=== PATIENT | female | born 1955 | race Caucasian/White ===

== ENCOUNTER 2017-05-12 07:17 | Outpatient (CLI) | payer MEDICARE, MEDICAID ==
[~2017-05-12] VITALS: Ht 175.3 cm; Wt 66.2 kg
[2017-05-12 08:37] VITALS: BP 95/58; Ht 175.3 cm; Wt 66.2 kg
[2017-05-12 08:45] LABS: BASOPHILS 0.4 % (0-2); EOSINOPHILS 1.6 % (0-7); HEMATOCRIT 37.4 % (36.0-48.0); IMMATURE GRANULOCYTES 0.2 % (0-5); LYMPHOCYTES 22.6 % (15-50); MCH 30.2 pg (26.0-34.0); MCHC 32.1 g/dL (31.0-37.0); MCV 94.2 fL (80.0-100.0); MEAN PLATELET VOLUME 9.1 fL (7.4-10.4); MONOCYTES 8.5 % (2-11); NEUTROPHILS 66.7 % (40-80); PLATELET COUNT 311 10x3/uL (130-400); RBC 3.97 10x6/uL (4.00-5.40); RDW 13.4 % (11.5-14.5); WBC 8.4 10x3/uL (4.8-10.8)
[2017-05-12 09:16] LABS: CALC OSMOLALITY 280 mosm/kg (275-300); CALCIUM 8.9 mg/dL (8.5-10.1); CHLORIDE - SERUM 105 mmol/L (98-107); CREATININE - SERUM 0.7 mg/dL (0.6-1.3); GLUCOSE 98 mg/dL (74-106); POTASSIUM - SERUM 4.2 mmol/L (3.5-5.1); SODIUM 140 mmol/L (136-145); UREA NITROGEN 17 mg/dL (7-18); eGFR NON AFRICAN AMERICAN 90 mL/min (90-120)
[2017-05-12 09:37] LABS: APTT 27.6 SECONDS (22.8-39.4); INR 0.93 (0.85-1.17); PROTIME 12.3 SECONDS (11.6-15.0)
--- NOTE | 2017-05-12 11:22 | NUR ---
SEE POST POCEDURE VITAL SIGN CHECKLIST
--- NOTE | 2017-05-12 13:53 | NUR ---
NOTIFIED FROM CJ HENRIQUEZ NURSE THAT PATIENT WAS CLEAR TO HAVE A TRAY AND BE DC HOME.
--- NOTE | 2017-05-12 15:19 | NUR ---
1415 REGULAR TRAY PROVIDED. VSS 1420 DC PT PER DORA WALLACE RN 1440 PIV REMOVED W/CATHETER TIP INTACT BRENDA WELL DC TEACHING COMPLETE 1445 PT DC HOME VIA WHEELCHAIR W/FRIEND DRIVING
== END 2017-05-12 14:45 | disposition home or self-care (01) ==
LOC: D.OPS 07:17 → D.CT 10:00 → D.OPS 14:45 → D.CT 05-17 11:00
PROVIDERS: Specialist
DX: C78.02 Secondary malignant neoplasm of left lung (principal); C51.9 Malignant neoplasm of vulva, unspecified

== ENCOUNTER 2017-07-08 21:00 | Observation (INO) | payer MEDICARE, MEDICAID ==
[2017-07-08 22:46] LABS: BASOPHILS 0.2 % (0-2); EOSINOPHILS 0.2 % (0-7); HEMATOCRIT 32.8 % (36.0-48.0); HEMOGLOBIN 10.6 g/dL (12-16); LYMPHOCYTES 13.8 % (15-50); MCH 30.2 pg (26.0-34.0); MCHC 32.3 g/dL (31.0-37.0); MCV 93.4 fL (80.0-100.0); MEAN PLATELET VOLUME 8.1 fL (7.4-10.4); MONOCYTES 15.7 % (2-11); NEUTROPHILS 69.1 % (40-80); RBC 3.51 10x6/uL (4.00-5.40); RDW 14.7 % (11.5-14.5); WBC 12.1 10x3/uL (4.8-10.8)
[2017-07-08 22:48] LABS: PLATELET COUNT 527 10x3/uL (130-400)
[2017-07-08 23:01] LABS: ANION GAP 11.8 mmol/L (8-16); CARBON DIOXIDE 28.9 mmol/L (21.0-32.0); CREATININE - SERUM 0.9 mg/dL (0.6-1.3); POTASSIUM - SERUM 4.7 mmol/L (3.5-5.1)
[2017-07-09] MEDS ORDERED: PHENERGAN25 M1 PO (01:24)
[2017-07-09] MEDS ORDERED: ZOFRAN4 MG PO (01:25)
[2017-07-09] MEDS ORDERED: ULTRAM50 MG PO (01:25)
--- NOTE | 2017-07-09 01:25 | NUR ---
PT ARRIVED ON UNIT VIA STRETCHER ESCORTED BY ER STAFF. POSITIONED IN BED FOR COMFORT. ORIENTATED TO ROOM AND CALL LIGHT SYSTEM. IV FLUIDS STARTED PER ORDER TO LEFT INFUSAPORT. SIDE RAILS UP X2 FOR SAFETY.
--- NOTE | 2017-07-09 01:45 | NUR ---
PERFORMED SS ENEMAS INSTILLING 1,000 ML OVER 6 STAGES, UNTIL PT STATED SHE NEEDS A BREAK. RETURN OF SOME STOOL...APPROX 200ML WITH RETURN OF ALL INSTILLED SOAPY WATER. PT WANTS A BREAK FOR TONIGHT TO REST. ALL LINENS AND GOWN CHANGED.
[2017-07-09 02:27] VITALS: BP 111/60; BMI 20.7
[2017-07-09 04:00] VITALS: BP 101/54
[2017-07-09 06:10] LABS: BASOPHILS 0.2 % (0-2); EOSINOPHILS 0.3 % (0-7); HEMATOCRIT 29.5 % (36.0-48.0); HEMOGLOBIN 9.4 g/dL (12-16); LYMPHOCYTES 17.3 % (15-50); MCH 29.8 pg (26.0-34.0); MCHC 31.9 g/dL (31.0-37.0); MCV 93.7 fL (80.0-100.0); MEAN PLATELET VOLUME 8.4 fL (7.4-10.4); NEUTROPHILS 65.2 % (40-80); PLATELET COUNT 496 10x3/uL (130-400); RBC 3.15 10x6/uL (4.00-5.40); RDW 14.8 % (11.5-14.5); WBC 10.6 10x3/uL (4.8-10.8)
[2017-07-09 06:17] LABS: CALC OSMOLALITY 279 mosm/kg (275-300); CALCIUM 7.9 mg/dL (8.5-10.1); CARBON DIOXIDE 25.2 mmol/L (21.0-32.0); CHLORIDE - SERUM 105 mmol/L (98-107); CREATININE - SERUM 0.7 mg/dL (0.6-1.3); GLUCOSE 104 mg/dL (74-106); POTASSIUM - SERUM 4.4 mmol/L (3.5-5.1); SODIUM 140 mmol/L (136-145); UREA NITROGEN 15 mg/dL (7-18); eGFR NON AFRICAN AMERICAN 90 mL/min (90-120)
--- NOTE | 2017-07-09 08:00 | NUR ---
ASSESSMENT PER FLOW SHEET.PT WITHOUT DISTRESS.CALL LIGHT IN REACH
[2017-07-09 09:20] VITALS: BP 106/58
[2017-07-09 12:31] VITALS: BP 124/74
--- NOTE | 2017-07-09 14:42 | NUR ---
ZOFRAN ORDERED. PT IS NOT TOLERATING CONTRAST FOR CT.
[2017-07-09 16:05] VITALS: BP 117/73
--- NOTE | 2017-07-09 17:00 | NUR ---
CALL TO CT TO LET THEM BE AWARE PT IS NOT TOLERATING CONTRAST
--- NOTE | 2017-07-09 17:02 | NUR ---
STILL UNABLE TO TOLERATE CONTRAST FOR CT WITHOUT NAUSEA.
--- NOTE | 2017-07-09 18:58 | NUR ---
REMAINS WITHOUT CANGE,STILL COMPLAINNG OF NAUSEA AND PAIN. CT RESULTS NOT AVAILABLE AT THIS TIME. CONT PLAN OF CARE
--- NOTE | 2017-07-09 21:25 | NUR ---
REC'D LYING IN BED. ALERT AND ORIENTED X4. REPORTED 10/10 IN ABDOMEN. HAS N/V, ADMIND ZOFRAN. WILL REASSESS TO SEE IS NASEUA HAS GONE DOWN. INSTRUCTED TO CALL IF NEEDED ANYTHING. VERBALIZED UNDERSTANDING. WILL CONT TO MONITOR. BED LOW, LOCKED, CALL LIGHT IN REACH.
[2017-07-09 21:27] VITALS: BP 105/64
[2017-07-10 04:00] VITALS: BP 118/73
--- NOTE | 2017-07-10 04:39 | NUR ---
RESTING QUIETLY, EYES CLOSED. RESP EVEN, UNLABORED. NO DISTRESS NOTED. CONTINUE SHIP MATE'S PLAN OF CARE.
[2017-07-10 04:51] LABS: BASOPHILS 0.2 % (0-2); EOSINOPHILS 0.2 % (0-7); HEMOGLOBIN 9.2 g/dL (12-16); IMMATURE GRANULOCYTES 1.3 % (0-5); LYMPHOCYTES 12.4 % (15-50); MCH 29.8 pg (26.0-34.0); MCHC 31.7 g/dL (31.0-37.0); MCV 93.9 fL (80.0-100.0); MEAN PLATELET VOLUME 8.6 fL (7.4-10.4); MONOCYTES 9.4 % (2-11); NEUTROPHILS 76.5 % (40-80); PLATELET COUNT 416 10x3/uL (130-400); RBC 3.09 10x6/uL (4.00-5.40); RDW 14.6 % (11.5-14.5); WBC 11.4 10x3/uL (4.8-10.8)
[2017-07-10 05:12] LABS: ALKALINE PHOSPHATASE 133 U/L (46-116); ALT (SGPT) 24 U/L (10-68); AMYLASE - SERUM 27 U/L (25-115); BILIRUBIN - TOTAL 0.26 mg/dL (0.2-1.3); CALCIUM 7.1 mg/dL (8.5-10.1); CARBON DIOXIDE 19.6 mmol/L (21.0-32.0); CHLORIDE - SERUM 107 mmol/L (98-107); CREATININE - SERUM 0.6 mg/dL (0.6-1.3); GLUCOSE 93 mg/dL (74-106); LIPASE 62 U/L (73-393); PROTEIN - SERUM 5.6 g/dL (6.4-8.2); SODIUM 141 mmol/L (136-145); eGFR NON AFRICAN AMERICAN > 90 mL/min (90-120)
[2017-07-10 05:14] LABS: CALC OSMOLALITY 279 mosm/kg (275-300); UREA NITROGEN 11 mg/dL (7-18)
[2017-07-10 05:21] LABS: POTASSIUM - SERUM 2.9 mmol/L (3.5-5.1)
--- NOTE | 2017-07-10 05:33 | NUR ---
POTASSIUM CAME BACK AT 2.9CL STARTED ON ELECTROLYTE PROTOCOL PER [facility]. WILL REPLACE POTASSIUM.
--- NOTE | 2017-07-10 07:40 | NUR ---
PT AOX4 RESP EVEN AND NONLABORED PT DENIES NEEDS AT THIS TIME IV TO LEFT SUBCLAVIAN PORT PATENT AND INTACT AT THIS TIME SRX2 BED AT LOWEST SETTING CALL LIGHT WITHIN REACH WILL CONTINUE TO MONITOR
[2017-07-10 08:35] VITALS: BP 127/78
[2017-07-10 12:29] VITALS: BP 108/61
[2017-07-10 16:16] VITALS: BP 112/82
[2017-07-10 20:00] VITALS: BP 148/96
--- NOTE | 2017-07-10 20:30 | NUR ---
PATIENT STATED SHE CANNOT LAY ON HER SIDE YET FOR THE SUPPOSITORY. SHE SAID SHE IS STILL NAUSEOUS. TOLD HER TO CALL WHEN SHE IS READY.
--- NOTE | 2017-07-10 21:45 | NUR ---
PATIENT REFUSED SUPPOSITORY FOR DULCOLAX AT THIS TIME DUE TO ABDOMINAL PAIN AND REFUSED CHRONULAC DUE TO ABDOMINAL PAIN AND NAUSEA
--- NOTE | 2017-07-10 21:58 | NUR ---
PATIENT IS RESTING QUIETLY WITH EYES CLOSED.
--- NOTE | 2017-07-11 00:15 | NUR ---
PATIENT HAD A MEDIUM SIZED HARD STOOL BM IN THE BEDSIDE COMMODE. ASSISTED HER BACK TO BED. SHE REQUESTED A BED BATH. CALL LIGHT IN REACH. BED RIALS UP X'S 2. BED IN LOWEST POSITION.
--- NOTE | 2017-07-11 00:32 | NUR ---
EDUCATED PATIENT ON SCDS. SHE AGREED TO WEAR SCDS. COMPUTER SYSTEMS SOFTWARE ARCHITECT IS GIVING PATIENT A BED BATH. NAA SAID SHE WILL PUT THE SCDS ON HER WHEN THE BEDBATH IS COMPLETE.
--- NOTE | 2017-07-11 01:47 | NUR ---
PATIENT REQUESTED PAIN MEDICATION AND PHENERGAN. SHE STATED "I AM THROWING UP AGAIN. AND MY PAIN IS EXCRUTIATING, I THINK I NEED THAT PAIN MEDICATION NOW." PATIENT REFUSED TO GET THE SECOND DOSE OF DULCOLAX, SHE STATED "I KNOW I NEED IT AND I HAVE MORE THAT NEEDS TO COME OUT, BUT FOR TONIGHT I JUST WANT TO HOLD OFF ON IT. I CANNOT TAKE ANYMORE TONIGHT, I JUST NEED MY REST. I WILL DO IT TOMORROW BUT NOT TONIGHT."
--- NOTE | 2017-07-11 02:10 | NUR ---
PATIENT STATED "I AM FEELING SO MUCH BETTER NOW."
--- NOTE | 2017-07-11 02:32 | NUR ---
PATIENT IS RESTING QUIETLY WITH EYES CLOSED. NO SIGNS OF DISTRESS NOTED. AROUSES EASILY.
[2017-07-11 05:35] LABS: BASOPHILS 0.2 % (0-2); EOSINOPHILS 0.3 % (0-7); HEMATOCRIT 28.2 % (36.0-48.0); HEMOGLOBIN 9.1 g/dL (12-16); IMMATURE GRANULOCYTES 1.6 % (0-5); LYMPHOCYTES 11.1 % (15-50); MCH 29.9 pg (26.0-34.0); MCHC 32.3 g/dL (31.0-37.0); MCV 92.8 fL (80.0-100.0); MEAN PLATELET VOLUME 8.3 fL (7.4-10.4); MONOCYTES 10.5 % (2-11); NEUTROPHILS 76.3 % (40-80); PLATELET COUNT 403 10x3/uL (130-400); RBC 3.04 10x6/uL (4.00-5.40); RDW 14.7 % (11.5-14.5); WBC 13.1 10x3/uL (4.8-10.8)
[2017-07-11 05:39] VITALS: BP 120/77
[2017-07-11 05:52] LABS: ALKALINE PHOSPHATASE 129 U/L (46-116); ALT (SGPT) 24 U/L (10-68); CALC OSMOLALITY 281 mosm/kg (275-300); CALCIUM 7.9 mg/dL (8.5-10.1); CARBON DIOXIDE 21.3 mmol/L (21.0-32.0); CHLORIDE - SERUM 111 mmol/L (98-107); CREATININE - SERUM 0.5 mg/dL (0.6-1.3); GLUCOSE 104 mg/dL (74-106); POTASSIUM - SERUM 3.5 mmol/L (3.5-5.1); PROTEIN - SERUM 5.6 g/dL (6.4-8.2); SODIUM 142 mmol/L (136-145); UREA NITROGEN 9 mg/dL (7-18); eGFR NON AFRICAN AMERICAN > 90 mL/min (90-120)
--- NOTE | 2017-07-11 07:45 | NUR ---
PT AOX4 RESP EVEN AND NONLABORED PT DENIES NEEDS AT THIS TIME IV TO LEFT FOREARM PATENT AND INTACT AT THIS TIME SRX2 BED AT LOWEST SETTING CALL LIGHT WITHIN REACH WILL CONTINUE TO MONITOR
--- NOTE | 2017-07-11 07:53 | NUR ---
Patient Name: BARBARA AGUILAR Admission Status: ER Accout number: [id number] Admission Date: 07-08-2017 : 1955 Admission Diagnosis: Attending: EBER, Current LOS: 3 Anticipated DC Date: 07-11-2017 Planned Disposition: Home Primary Insurance: [employer] ADV Discharge Planning Comments: CM MET WITH PATIENT REGARDING D/C NEEDS AND PLANS. PATIENT STATED SHE LIVES ALONE AND HER FRIEND (AMARILYS) POSSIBLY WILL DRIVE HER HOME AT DISCHARGE. PATIENT STATED SHE HAS NO STEPS OR STAIRS AT HER HOME. PATIENT STATED SHE IS INDEPENDENT WITH HER CARE AND HAS A WALKER, WHEELCHAIRK, SHOWER CHAIR, AND CANE AT HOME. PATIENTS PCP IS DR. AMOL HOUSTON AND USES [facility]. PATIENT STATED [facility] IN [place] IS SETTING UP HH FOR HER. CM WILL CONTINUE TO FOLLOW PATIENT WITH D/C NEEDS AND PLANS. PCP DR. AMOL HOUSTON [facility]- [phone] AMARILYS TERRY (FRIEND) [phone] Fuel Cell Battery Technician: Lauren Bowens Is the patient Alert and Oriented? Yes 0 * How many steps to enter\exit or inside your home? 0 0 * PCP DR. AMOL HOUSTON 0 * Pharmacy [facility] 0 * Preadmission Environment Home Alone 0 * ADLs Independent 0 * Equipment Cane Shower Chair Walker Wheelchair 0 * List name and contact numbers for known caregivers / representatives who currently or will assist patient after discharge: AMARILYS TERRY (FRIEND) [phone] 0 * Community resources currently utilized None 0 * Please name any agencies selected above. HH HAS NOT STARTED YET PER PATIENT 0 * Additional services required to return to the preadmission environment? Yes 0 * Can the patient safely return to the preadmission environment? Yes 0 * Has this patient been hospitalized within the prior 30 days at any hospital? No 0 Grand Total: 0
[2017-07-11 08:52] VITALS: BP 119/64
[2017-07-11] MEDS ORDERED: CHRONULAC30 ML PO (09:54)
--- NOTE | 2017-07-11 10:10 | NUR ---
CM REASSESSMENT NOTE: PATIENT IS DISCHARGING HOME TODAY/FRIEND DRIVING. PATIENT STATED SHE WILL CALL [facility] ONCE HOME AND LET THEM KNOW SHE IS HOME. PATIENT HAD NO OTHER NEEDS FOR DISCHARGE.
--- NOTE | 2017-07-11 11:58 | NUR ---
IV DISCONTINUED WITH CATHETER INTACT AT THIS TIME PT GIVEN DISCHARGE INTSTRUCTIONS AND PAPER PRESCRIPTION FOR PAIN MED AT THIS TIME PT TAKEN VIA WHEELCHAIR VIA PRIVATE VEHICLE AT THIS TIME
== END 2017-07-11 12:00 | disposition home or self-care (01) ==
LOC: D.ER 21:00 → D.MS 23:39 → OBSVTIME 23:39 → D.MS 23:39
PROVIDERS: Family Medicine; Nurse Practitioner Acute Care; ADMIT Family Medicine
DX: K59.00 Constipation, unspecified (principal); C34.90 Malignant neoplasm of unspecified part of unspecified bronchus or lung; C51.9 Malignant neoplasm of vulva, unspecified

== ENCOUNTER 2017-08-10 16:10 | Emergency (ER) | payer MEDICARE, MEDICAID ==
[~2017-08-10 16:10] MED LIST: CHRONULAC30 ML PO; PHENERGAN25 M1 PO; ULTRAM50 MG PO; ZOFRAN4 MG PO
[2017-08-10 17:03] LABS: BASOPHILS 0.1 % (0-2); EOSINOPHILS 0 % (0-7); HEMATOCRIT 30.3 % (36.0-48.0); HEMOGLOBIN 9.7 g/dL (12-16); IMMATURE GRANULOCYTES 0.5 % (0-5); LYMPHOCYTES 4.3 % (15-50); MCV 90.4 fL (80.0-100.0); MONOCYTES 9.1 % (2-11); PLATELET COUNT 381 10x3/uL (130-400); RBC 3.35 10x6/uL (4.00-5.40); RDW 14.8 % (11.5-14.5); WBC 17.8 10x3/uL (4.8-10.8)
[2017-08-10 17:19] LABS: ALBUMIN 2.8 g/dL (3.4-5.0); ALKALINE PHOSPHATASE 205 U/L (46-116); ALT (SGPT) 25 U/L (10-68); AMYLASE - SERUM 31 U/L (25-115); BILIRUBIN - TOTAL 0.36 mg/dL (0.2-1.3); CALC OSMOLALITY 276 mosm/kg (275-300); CARBON DIOXIDE 25.4 mmol/L (21.0-32.0); CHLORIDE - SERUM 100 mmol/L (98-107); CREATININE - SERUM 0.7 mg/dL (0.6-1.3); GLUCOSE 147 mg/dL (74-106); LIPASE 60 U/L (73-393); POTASSIUM - SERUM 3.8 mmol/L (3.5-5.1); PROTEIN - SERUM 7.8 g/dL (6.4-8.2); SODIUM 137 mmol/L (136-145); UREA NITROGEN 13 mg/dL (7-18); eGFR NON AFRICAN AMERICAN 90 mL/min (90-120)
[2017-08-10 18:50] LABS: APPEARANCE CLEAR (CLEAR); BILIRUBIN NEGATIVE (NEGATIVE); COLOR DK YELLOW (YELLOW); GLUCOSE NEGATIVE (NEGATIVE); KETONE MODERATE mg/dL (NEGATIVE); NITRITE NEGATIVE (NEGATIVE); PROTEIN TRACE mg/dL (NEGATIVE); UROBILINOGEN NORMAL (NORMAL)
[2017-08-10 18:51] LABS: BACTERIA MODERATE /hpf (NONE SEEN); EPITHELIAL CELLS 0-5 /hpf (0-5); MUCUS >1+ /lpf (NONE SEEN); RED CELLS - URINE 0-5 /hpf (0-5); WHITE CELLS - URINE 0-5 /hpf (0-5)
== END 2017-08-10 20:38 | disposition home or self-care (01) ==
LOC: D.ER 16:10
PROVIDERS: Emergency Medicine; Nurse Practitioner Family
DX: K59.00 Constipation, unspecified (principal); R10.9 Unspecified abdominal pain

== ENCOUNTER 2017-08-24 12:28 | Emergency (ER) | payer MEDICARE, MEDICAID ==
[2017-08-24 13:39] LABS: BASOPHILS 0.2 % (0-2); EOSINOPHILS 0.1 % (0-7); HEMATOCRIT 30.2 % (36.0-48.0); HEMOGLOBIN 9.7 g/dL (12-16); IMMATURE GRANULOCYTES 3.1 % (0-5); MCH 27.9 pg (26.0-34.0); MCHC 32.1 g/dL (31.0-37.0); MCV 86.8 fL (80.0-100.0); MEAN PLATELET VOLUME 9.2 fL (7.4-10.4); MONOCYTES 11.8 % (2-11); NEUTROPHILS 77.8 % (40-80); PLATELET COUNT 380 10x3/uL (130-400); RBC 3.48 10x6/uL (4.00-5.40); RDW 16.1 % (11.5-14.5)
[2017-08-24 13:43] LABS: ALBUMIN 2.2 g/dL (3.4-5.0); ANION GAP 20.4 mmol/L (8-16); BILIRUBIN - TOTAL 0.59 mg/dL (0.2-1.3); CALCIUM 9.9 mg/dL (8.5-10.1); CARBON DIOXIDE 18.9 mmol/L (21.0-32.0); CREATININE - SERUM 0.9 mg/dL (0.6-1.3); POTASSIUM - SERUM 4.3 mmol/L (3.5-5.1); PROTEIN - SERUM 7.9 g/dL (6.4-8.2)
[2017-08-24 14:41] LABS: APPEARANCE HAZY (CLEAR); COLOR DK YELLOW (YELLOW); SPECIFIC GRAVITY 1.015 (1.005-1.020)
[2017-08-24 14:42] LABS: BILIRUBIN NEGATIVE (NEGATIVE); GLUCOSE NEGATIVE (NEGATIVE); KETONE SMALL mg/dL (NEGATIVE); NITRITE NEGATIVE (NEGATIVE); PROTEIN 1+ mg/dL (NEGATIVE); UROBILINOGEN NORMAL (NORMAL)
[2017-08-24 14:45] LABS: BACTERIA FEW /hpf (NONE SEEN); EPITHELIAL CELLS 0-5 /hpf (0-5); GRANULAR CAST 0-5 /lpf (NONE SEEN)
== END 2017-08-24 16:56 | disposition home or self-care (01) ==
LOC: D.ER 12:28
PROVIDERS: Family Medicine
DX: N39.0 Urinary tract infection, site not specified (principal); R11.10 Vomiting, unspecified; E86.0 Dehydration; Z85.118 Personal history of other malignant neoplasm of bronchus and lung; Z85.89 Personal history of malignant neoplasm of other organs and systems

== ENCOUNTER 2017-09-05 11:41 | Inpatient (IN) | payer MEDICARE, MEDICAID ==
[~2017-09-05] VITALS: Ht 175.3 cm; Wt 59.0 kg
[2017-09-05 12:17] LABS: HEMATOCRIT 24.6 % (36.0-48.0); HEMOGLOBIN 7.8 g/dL (12-16); MCH 26.8 pg (26.0-34.0); MCHC 31.7 g/dL (31.0-37.0); MCV 84.5 fL (80.0-100.0); MEAN PLATELET VOLUME 8.4 fL (7.4-10.4); PLATELET COUNT 743 10x3/uL (130-400); RBC 2.91 10x6/uL (4.00-5.40); RDW 16.8 % (11.5-14.5); WBC 27.3 10x3/uL (4.8-10.8)
[2017-09-05 12:29] LABS: ALBUMIN 2.1 g/dL (3.4-5.0); ANION GAP 17.7 mmol/L (8-16); BILIRUBIN - TOTAL 0.54 mg/dL (0.2-1.3); CALCIUM 9.6 mg/dL (8.5-10.1); CARBON DIOXIDE 20.6 mmol/L (21.0-32.0); CREATININE - SERUM 1.9 mg/dL (0.6-1.3); POTASSIUM - SERUM 5.3 mmol/L (3.5-5.1)
[2017-09-05 12:55] LABS: EOSINOPHILS 1 % (0-7); LYMPHOCYTES 4 % (15-50); MONOCYTES 7 % (2-11); NEUTROPHILS 74 % (40-80); PLATELET ESTIMATE INCREASED
[2017-09-05 14:06] LABS: APPEARANCE SLT CLOUDY (CLEAR); COLOR YELLOW (YELLOW); SPECIFIC GRAVITY 1.015 (1.005-1.020)
[2017-09-05 14:07] LABS: AMORPHOUS SEDIMENT >1+ /lpf (NONE SEEN); BACTERIA FEW /hpf (NONE SEEN); BILIRUBIN NEGATIVE (NEGATIVE); EPITHELIAL CELLS OCC /hpf (0-5); GLUCOSE 50 mg/dL (NEGATIVE); GRANULAR CAST 0-5 /lpf (NONE SEEN); HYALINE CAST 0-5 /lpf (NONE SEEN); KETONE NEGATIVE (NEGATIVE); MUCUS <1+ /lpf (NONE SEEN); NITRITE NEGATIVE (NEGATIVE); PROTEIN NEGATIVE (NEGATIVE); RED CELLS - URINE 0-5 /hpf (0-5); UROBILINOGEN NORMAL (NORMAL); WHITE CELLS - URINE RARE /hpf (0-5)
--- NOTE | 2017-09-05 17:45 | NUR ---
PATIENT TO ROOM AT THIS TIME. ASSISTED TO BED FROM STRETCHER X 1. LEVAQUIN INFUSING AT THIS TIME. IV INTACT. VS STABLE. NO COMPLAINTS AT THIS TIME. CALL LIGHT WITHIN REACH. FAMILY AT BEDSIDE.
--- NOTE | 2017-09-05 18:05 | NUR ---
BLOOD BANK CALLED AND STATED BLOOD READY. PATIENT ANTIBIOTICS INFUSING AT THIS TIME. WILL START BLOOD AFTER. PATIENT HAS NO COMPLAINTS AT THIS TIME. IV INTACT. CALL LIGHT WITHIN REACH.
[2017-09-05 18:37] VITALS: BP 81/43; BMI 19.2
--- NOTE | 2017-09-05 18:56 | NUR ---
PATIENT IN BED WITH IV INTACT. FLAGYL INFUSING AT THIS TIME. NO COMPLAINTS. CALL LIGHT WITHIN REACH.
--- NOTE | 2017-09-05 19:57 | NUR ---
ALERT,ORIENTED.NO COMPLAINTS AT PRESENT. PRE MED GIVEN PRIOR TTO TRANSFUSION. CL IN REACH.
--- NOTE | 2017-09-05 20:20 | NUR ---
1ST UNIT PRBC'S STARTED. WILL MONITOR. VSS. SIDE RAILS X 2. BED LOW. CALL LIGHT IN REACH.
--- NOTE | 2017-09-05 20:20 | NUR ---
FIRST UNIT OF PRBC STARTED TO LEFT FOREARM.NO DISTRESS NOTED.
--- NOTE | 2017-09-05 23:50 | NUR ---
2ND UNIT PRBC STARTED..LASIX 20 MG GIVEN IV BETWEEN UNITS PER ORDERS. NO DISTRESS NOTED
--- NOTE | 2017-09-05 23:50 | NUR ---
2ND UNIT PRBC'S STARTED. VSS. WILL MONITOR. SIDE RAILS X 2. BED LOW. CALL LIGHT IN REACH.
[2017-09-06] VITALS (12 sets, daily range): BP systolic 80–105; BP diastolic 47–57; BMI 19.2
--- NOTE | 2017-09-06 02:47 | NUR ---
PRBC TRANSFUSION COMPLETED WITH NO S/S REACTIONS NOTED. RESP EVEN AND UNLABORED. NO DISTRESS NOTED. CL IN REACH
[2017-09-06 06:09] LABS: RBC 3.68 10x6/uL (4.00-5.40); WBC 24.3 10x3/uL (4.8-10.8)
[2017-09-06 06:10] LABS: BASOPHILS 0.1 % (0-2); EOSINOPHILS 1.3 % (0-7); HEMATOCRIT 30.9 % (36.0-48.0); HEMOGLOBIN 9.8 g/dL (12-16); IMMATURE GRANULOCYTES 3.6 % (0-5); LYMPHOCYTES 2.8 % (15-50); MCH 26.6 pg (26.0-34.0); MCHC 31.7 g/dL (31.0-37.0); MEAN PLATELET VOLUME 8.7 fL (7.4-10.4); MONOCYTES 9.6 % (2-11); NEUTROPHILS 82.6 % (40-80); PLATELET COUNT 619 10x3/uL (130-400); RDW 17.3 % (11.5-14.5)
[2017-09-06 06:39] LABS: ALBUMIN 1.8 g/dL (3.4-5.0); ANION GAP 14.9 mmol/L (8-16); BILIRUBIN - TOTAL 1.67 mg/dL (0.2-1.3); CALCIUM 8.4 mg/dL (8.5-10.1); CARBON DIOXIDE 20.7 mmol/L (21.0-32.0); POTASSIUM - SERUM 4.6 mmol/L (3.5-5.1); PROTEIN - SERUM 7.1 g/dL (6.4-8.2)
[2017-09-06 06:44] LABS: CREATININE - SERUM 1.4 mg/dL (0.6-1.3)
--- NOTE | 2017-09-06 07:05 | NUR ---
PT REC'D FROM LILIB[facility] ROSAS. RESTING IN BED WATCHING TV. AAOX4. RATING CURRENT PAIN IN L ANKLE 04/17. WILL REASSESS. REGULAR HEART RATE AND RHYTHM. LUNG SOUNDS WITH CRACKLES AND WHEEZES NOTED TO TREASURE AND RML BILAT, AND DIMINSHED BILAT TO LOWER LOBES. BOWEL SOUNDS ACTIVE X4 QUADS. RASH NOTED TO FACE, BUTTOCK, AND INNER THIGHS. SORES AND PEELING NOTED TO BUTTOCK WELL. PT STATES SHE HAS BEEN DEALING WITH THIS SINCE SHE STARTED HER CHEMO. PIV TO L FA FREE OF REDNESS AND SWELLING. L CHEST PORT ACCESSED NOTED, BUT CURRENTLY UNACCESSED. BED LOW, CALL LIGHT IN REACH, DENIES NEEDS. CPOC.
--- NOTE | 2017-09-06 09:30 | NUR ---
PORT ACCESSED USING RESOURCE RECOVERY ENGINEER 20G NEEDLE.BLOOD RETURN CONFIRMED
--- NOTE | 2017-09-06 22:18 | NUR ---
PRN MORPHINE ADMINISTERED AT THIS TIME FOR PAIN 10/10. PT STATED HER LEFT ANKLE/FOOT IS HURTING SO BAD SHE CAN NOT STAND IT.
[2017-09-07] VITALS (14 sets, daily range): BP systolic 83–104; BP diastolic 43–61
--- NOTE | 2017-09-07 02:47 | NUR ---
PRN MORPHINE ADMINISTERED AT THIS TIME FOR PAIN IN RIGHT FOOT/ANKLE.
[2017-09-07 05:18] LABS: WBC 27.2 10x3/uL (4.8-10.8)
[2017-09-07 05:19] LABS: BASOPHILS 0.1 % (0-2); EOSINOPHILS 0.3 % (0-7); HEMATOCRIT 26.5 % (36.0-48.0); HEMOGLOBIN 8.4 g/dL (12-16); IMMATURE GRANULOCYTES 2.1 % (0-5); LYMPHOCYTES 3.6 % (15-50); MCH 26.8 pg (26.0-34.0); MCHC 31.7 g/dL (31.0-37.0); MCV 84.4 fL (80.0-100.0); MEAN PLATELET VOLUME 8.6 fL (7.4-10.4); MONOCYTES 10.5 % (2-11); NEUTROPHILS 83.4 % (40-80); PLATELET COUNT 439 10x3/uL (130-400); RBC 3.14 10x6/uL (4.00-5.40); RDW 17.6 % (11.5-14.5)
[2017-09-07 05:49] LABS: ALBUMIN 1.5 g/dL (3.4-5.0); ANION GAP 17.5 mmol/L (8-16); BILIRUBIN - TOTAL 0.8 mg/dL (0.2-1.3); CALCIUM 8.2 mg/dL (8.5-10.1); CARBON DIOXIDE 17.9 mmol/L (21.0-32.0); POTASSIUM - SERUM 4.4 mmol/L (3.5-5.1); PROTEIN - SERUM 6.1 g/dL (6.4-8.2)
--- NOTE | 2017-09-07 07:00 | NUR ---
REPORT RECIEVED ASSUMED CARE. PATIENT IN BED WITH IV INTACT. NO COMLAINTS AT THIS TIME. CALL LIGHT WITHIN REACH.
--- NOTE | 2017-09-07 07:00 | NUR ---
REPORT RECIEVED ASSUMED CARE. PATIENT IN BED WITH IV INTACT. NO COMPLAINTS CALL LIGHT WITHIN REACH.
--- NOTE | 2017-09-07 10:54 | NUR ---
Patient Name: BARBARA AGUILAR Admission Status: ER Accout number: [id number] Admission Date: 09-05-2017 : 1955 Admission Diagnosis:CONSTIPATION, UNSPECIFIED Attending: Isaura Krause Current LOS: 2 Anticipated DC Date: Planned Disposition: Inpatient Rehab Primary Insurance: MEDICARE A & B Discharge Planning Comments: CM MET WITH PATIENT TO ASSESS DISCHARGE PLANNING. PATIENT LIVES HOME ALONE WHERE SHE STATED THAT SHE IS INDEPENDENT WITH HER CARE, BUT SHE IS HAVING A HARD TIME WALKING. SHE IS OPPOSED TO GOING TO A SKILLED FACILITY, BUT SHE WOULD NOT BE OPPOSED TO GOING DOWN STAIRS TO OUR INPATIENT REHAB. REFERRAL MADE. SHE STATED SHE TRY TO GET HOME HEALTH, BUT WAS NOT ABLE TO GET IT BECAUSE OF A TIME FRAME. SHE STATED THAT SHE DOES NOT HAVE ANY STEPS TO ENTER HER HOME. SHE HAS A WHEELCHAIR, WALKER, CANE, AND ELEVATED TOILET SEAT AT HOME. HER FRIEND WILL BE THE ONE TO TAKE HER HOME. CM WILL CONTINUE TO FOLLOW AND ASSIST WITH DISCHARGE PLANNNING NEEDS DR CASIE JAQUEZ Contracts Advisor: Shanthi Demarco * Is the patient Alert and Oriented? Yes 0 * How many steps to enter\exit or inside your home? 0 0 * PCP Casie HOUSTON 0 * Pharmacy [facility] 0 * Preadmission Environment Home with Family 0 * ADLs Independent 0 * Equipment Cane Elevated [place] Seat Rolling Walker Walker Wheelchair 0 * List name and contact numbers for known caregivers / representatives who currently or will assist patient after discharge: AMARILYS TERRY (FRIEND) [phone] 0 * Community resources currently utilized None 0 * Additional services required to return to the preadmission environment? Yes 0 * Can the patient safely return to the preadmission environment? Yes 0 * Has this patient been hospitalized within the prior 30 days at any hospital? No 0 Grand Total: 0
--- NOTE | 2017-09-07 12:12 | NUR ---
REHAB PRESCREENING Rehab referral received and chart reviewed. At this time Ms. Jordan is refusing to stand with PT. Rehab will continue to follow for improvement with ambulation. Thank you for this referral! Breanna Narayanan, SUPERVISOR DELIVERY DEPARTMENT Rehab Teacher Early Childhood Development
--- NOTE | 2017-09-07 15:34 | NUR ---
Rehab Note- Visited with the patient. She stated that she is willing to participate in the required 3hrs of therapy a day. That she has been ill over the past month with a UTI and flu like symptoms but is feeling better medically that she is very weak. States she lives alone and plans to return to her independent lifestyle upon discharge from [facility] Acute Rehab. Spoke with Nyla CM. Thank you for this referral! Jocy Rondon RN Clinical Liaison, [facility] Rehab
[2017-09-08] VITALS (21 sets, daily range): BP systolic 75–113; BP diastolic 34–81
[2017-09-08 05:37] LABS: ALBUMIN 1.4 g/dL (3.4-5.0); ANION GAP 13.1 mmol/L (8-16); BILIRUBIN - TOTAL 0.5 mg/dL (0.2-1.3); CALCIUM 8.1 mg/dL (8.5-10.1); CARBON DIOXIDE 20.2 mmol/L (21.0-32.0); CREATININE - SERUM 0.9 mg/dL (0.6-1.3); POTASSIUM - SERUM 4.3 mmol/L (3.5-5.1); PROTEIN - SERUM 5.7 g/dL (6.4-8.2)
[2017-09-08 05:45] LABS: BASOPHILS 0.1 % (0-2); EOSINOPHILS 0.7 % (0-7); HEMATOCRIT 25.3 % (36.0-48.0); HEMOGLOBIN 7.8 g/dL (12-16); IMMATURE GRANULOCYTES 1.6 % (0-5); LYMPHOCYTES 6.4 % (15-50); MCH 26.4 pg (26.0-34.0); MCHC 30.8 g/dL (31.0-37.0); MCV 85.8 fL (80.0-100.0); MEAN PLATELET VOLUME 8.9 fL (7.4-10.4); MONOCYTES 5.7 % (2-11); NEUTROPHILS 85.5 % (40-80); PLATELET COUNT 414 10x3/uL (130-400); RBC 2.95 10x6/uL (4.00-5.40); RDW 17.8 % (11.5-14.5); WBC 28.8 10x3/uL (4.8-10.8)
--- NOTE | 2017-09-08 07:55 | NUR ---
AWAKE AND ALERT. ORIENTED X3. NO C/O AT THIS TIME. HAS BEEN HAVING MULTIPLE EPISODES OF EMESIS THROUGH THE NIGHT. LUNGS ARE CLEAR BILATERALLY, NON PRODUCTIVE COUGH NOTED. SKIN IS INTACT WITHOUT REDNESS. SL TO LEFT FOREARM D/C WITH CATHETER INTACT.LEFT PORT PATENT WITHOUT REDNESS AT INSERTION SITE. DENIES NEEDS. LEFT ANKLE IS SLIGHTLY SWOLLEN AND WARM WILL MONITOR.
--- NOTE | 2017-09-08 10:46 | NUR ---
FIRST UNIT PRB UP AT THIS TIME. VSS.
--- NOTE | 2017-09-08 11:00 | NUR ---
TRANSFUSION CONTINUES WITHOUT COMPLICATIONS. VSS.
--- NOTE | 2017-09-08 13:15 | NUR ---
TRANSFUSION COMPLETED WITHOUT COMPLICATIONS. NO SIGNS OF REACTION. VSS.
--- NOTE | 2017-09-08 13:30 | NUR ---
ASSISTED WITH BED ROSARIO PER STAFF. VOIDED 200 CC CLEAR YELLOW URINE.
--- NOTE | 2017-09-08 14:10 | NUR ---
SECOND UNIT OF PRBC UP AT THIS TIME. VSS. DENIES NEEDS. ASSISTED WITH BED ROSARIO PER STAFF.
--- NOTE | 2017-09-08 14:25 | NUR ---
TRANSFUSION CONTINUES WITHOUT DIFFICULTY. VSS.
--- NOTE | 2017-09-08 15:30 | NUR ---
ASSISTED WITH BED ROSARIO. VOIDED 200CC CLEAR YELLOW URINE. TRANSFUSION CONTINUES WITHOUT COMPLICATIONS.
--- NOTE | 2017-09-08 20:45 | NUR ---
AWAKE,ALERT.NO COMPLAITNS VOICED AT PRESENT. IV INFUSING TO LEFT PORT WIHTOUT REDNESS OR EDEMA NOTED. WEEKS. CL IN REACH
--- NOTE | 2017-09-08 23:20 | NUR ---
ANSWERED PATIENT'S CALL LIGHT, SHE REQUESTED TO BE PULLED UP IN BED. WITH ASSISTANCE FROM THE CYLINDER HONER, PULLED PATIENT UP IN BED USING PAD. PATIENT DENIES FURTHER NEEDS AT THIS TIME. RESPIRATIONS ARE EVEN AND UNLABORED ON ROOM AIR. BED IN LOWEST POSITION, CALL LIGHT IN REACH.
--- NOTE | 2017-09-09 02:01 | NUR ---
WATCHING TV QUIELTY. NO COMPLAINTS VOICED. RESP EVEN AND UNALBRORED. CL IN REACH
[2017-09-09 04:00] VITALS: BP 96/54
[2017-09-09 04:52] LABS: BASOPHILS 0.1 % (0-2); EOSINOPHILS 0.5 % (0-7); HEMATOCRIT 33.9 % (36.0-48.0); HEMOGLOBIN 10.9 g/dL (12-16); IMMATURE GRANULOCYTES 1.3 % (0-5); LYMPHOCYTES 3.1 % (15-50); MCHC 32.2 g/dL (31.0-37.0); MCV 83.9 fL (80.0-100.0); MEAN PLATELET VOLUME 8.5 fL (7.4-10.4); PLATELET COUNT 287 10x3/uL (130-400); RBC 4.04 10x6/uL (4.00-5.40); RDW 17.5 % (11.5-14.5); WBC 29.9 10x3/uL (4.8-10.8)
[2017-09-09 05:08] LABS: ALBUMIN 1.6 g/dL (3.4-5.0); ANION GAP 16.1 mmol/L (8-16); CALCIUM 7.5 mg/dL (8.5-10.1); CARBON DIOXIDE 19.1 mmol/L (21.0-32.0); POTASSIUM - SERUM 4.2 mmol/L (3.5-5.1); PROTEIN - SERUM 5.5 g/dL (6.4-8.2)
[2017-09-09 05:16] LABS: CREATININE - SERUM 1.4 mg/dL (0.6-1.3)
--- NOTE | 2017-09-09 05:47 | NUR ---
AWAKE,NO COMPLAINTS VOICED. CL IN REACH
--- NOTE | 2017-09-09 07:39 | NUR ---
AWAKE AND ALERT. ORIENTED X3. NO C/O AT THIS TIME. LUNGS ARE CLEAR BIALTERALLY, OCCASSIONAL DRY COUGH NOTED. SKIN IS INTACT WITHOUT REDNESS EXCEPT LEFT ANKLE SWOLLEN THIS AM AND WARM. WILL MONITOR. LEFT PORT PATENT WITHOUT REDNESS AT INSERTION SITE. DENIES NEEDS.
[2017-09-09 09:13] VITALS: BP 96/58
--- NOTE | 2017-09-09 09:50 | NUR ---
REPOSITIONED IN BED FOR COMFORT. DENIES NEEDS.
--- NOTE | 2017-09-09 11:40 | NUR ---
UP IN CHIAR AT BEDSIDE AFTER BED BATH, LINENS CHANGED. HAD SMALL AMOUNT OF EMESIS. GIVEN 4MG ZOFRAN SLOW IVP FOR C/O NAUSEA. WILL MONITOR. BACK TO BED AT THIS TIME PER PT. POSITIONED FOR COMFORT.
[2017-09-09 13:16] VITALS: BP 98/60
[2017-09-09 15:53] VITALS: BP 93/49
--- NOTE | 2017-09-09 18:13 | NUR ---
REPOSITIONED IN BED FOR COMFORT. CONTINUES TO C/O NAUSEA BUT NO EMESIS SINCE ZOFRAN GIVEN EARLIER. WILL CONTINUE TO MONITOR.
[2017-09-09 20:56] VITALS: BP 86/50
[2017-09-10] VITALS (8 sets, daily range): BP systolic 64–130; BP diastolic 26–63
[2017-09-10 06:35] LABS: BASOPHILS 0.1 % (0-2); EOSINOPHILS 0.2 % (0-7); HEMATOCRIT 33.2 % (36.0-48.0); HEMOGLOBIN 10.5 g/dL (12-16); IMMATURE GRANULOCYTES 1.8 % (0-5); LYMPHOCYTES 2.2 % (15-50); MCH 26.9 pg (26.0-34.0); MCHC 31.6 g/dL (31.0-37.0); MCV 85.1 fL (80.0-100.0); MONOCYTES 7.1 % (2-11); NEUTROPHILS 88.6 % (40-80); PLATELET COUNT 287 10x3/uL (130-400); WBC 32.2 10x3/uL (4.8-10.8)
[2017-09-10 06:47] LABS: ALBUMIN 1.4 g/dL (3.4-5.0); ANION GAP 17.1 mmol/L (8-16); BILIRUBIN - TOTAL 0.5 mg/dL (0.2-1.3); CALCIUM 7.6 mg/dL (8.5-10.1); CARBON DIOXIDE 16.8 mmol/L (21.0-32.0); POTASSIUM - SERUM 3.9 mmol/L (3.5-5.1); PROTEIN - SERUM 5.6 g/dL (6.4-8.2)
[2017-09-10 06:49] LABS: CREATININE - SERUM 2.3 mg/dL (0.6-1.3)
--- NOTE | 2017-09-10 09:20 | NUR ---
AWAKE AND ALERT. ORIENTED X3. NO C/O AT THIS TIME. LUNGS ARE CLEAR BILATERALLY, NO COUGH NOTED. SKIN IS INTACT WITHOUT REDNESS EXCEPT DRY SCABBED AREAS TO FACE AND COCCYX WHICH APPEAR TO BE HEALING. LEFT PORT IS PATENT WITHOUT REDNESS AT INSERTION SITE. REPOSITIONED IN BED FOR COMFORT.
--- NOTE | 2017-09-10 09:23 | NUR ---
UP TO CHAIR WITH 2 PERSON ASSIST. TAKING BATH AT THIS TIME WITH ASSIST OF STAFF.
--- NOTE | 2017-09-10 10:10 | NUR ---
ASSISTED BACK TO BED WITH 2 PERSON ASSIST. POSITIONED IN BED FOR COMFORT. RETAKE ON VS WNL FOR PATIENT.
--- NOTE | 2017-09-10 18:35 | NUR ---
MAINTAINED SATS AT 92% WITH O22L NC. NO CHANGES NOTED. DENIES NEEDS.
--- NOTE | 2017-09-10 19:20 | NUR ---
RECIEVED SHIFT REPORT. PT IS SITTING UP ON SIDE OF BED. PT HAS NO GOWN ON, AND PHONE AND CALL LIGHT ARE ON THE FLOOR. PT STATES SHE DOES NOT KNOW WHY HER GOWN IS OFF AND ITEMS ON FLOOR. PT ASSISTED TO HAVE GOWN PUT BACK ON AND BACK IN BED. IV IS PATENT AND FLUIDS ARE RUNNING PER ORDER. SCD'S OFF AT THIS TIME. PT DENIES ANY PAIN AT THIS TIME. O2 @ 2 PER NASAL CANNULA PLACED BACK ON. NO NEEDS ARE VERBALIZED AT THIS TIME. WILL CONTINUE TO MONITOR. SIDE RAILS ARE UP X 2. BED IS IN LOWEST POSITION. BED ALARM PLACED ON FOR SAFETY. CALL LIGHT IS WITHIN REACH.
--- NOTE | 2017-09-10 20:57 | NUR ---
SHIFT ASSESSMENT COMPLETED. NIGHT MEDS GIVEN WITH NO PROBLEMS. NO NEEDS ARE VOICED. WILL MONITOR. SIDE RAILS X 2. BED LOW. BED ALARM ON. CALL LIGHT IN REACH.
[2017-09-11] VITALS (8 sets, daily range): BP systolic 86–116; BP diastolic 44–81; Ht 175.3 cm; Wt 59.0 kg
--- NOTE | 2017-09-11 07:23 | NUR ---
REPORT RECEIVED FROM WEIGHTS AND MEASURES INSPECTOR NURSE. CALL LIGHT IN REACH.
[2017-09-11 08:25] LABS: BASOPHILS 0.1 % (0-2); EOSINOPHILS 0.3 % (0-7); HEMATOCRIT 33.7 % (36.0-48.0); HEMOGLOBIN 10.6 g/dL (12-16); IMMATURE GRANULOCYTES 1.2 % (0-5); LYMPHOCYTES 2.1 % (15-50); MCHC 31.5 g/dL (31.0-37.0); MCV 85.8 fL (80.0-100.0); MEAN PLATELET VOLUME 9.2 fL (7.4-10.4); MONOCYTES 7.9 % (2-11); NEUTROPHILS 88.4 % (40-80); PLATELET COUNT 318 10x3/uL (130-400); RBC 3.93 10x6/uL (4.00-5.40); RDW 18.2 % (11.5-14.5); WBC 28.2 10x3/uL (4.8-10.8)
[2017-09-11 08:39] LABS: ALBUMIN 1.4 g/dL (3.4-5.0); ANION GAP 18.5 mmol/L (8-16); BILIRUBIN - TOTAL 0.36 mg/dL (0.2-1.3); CARBON DIOXIDE 15.7 mmol/L (21.0-32.0); CREATININE - SERUM 3.4 mg/dL (0.6-1.3); POTASSIUM - SERUM 4.2 mmol/L (3.5-5.1); PROTEIN - SERUM 5.8 g/dL (6.4-8.2)
--- NOTE | 2017-09-11 09:21 | NUR ---
ASSESSMENT COMPLETED. AM MEDS ADMINISTERED. CONFUSED. BED ALARM ON. REFUSES SCDs. CALL LIGHT IN REACH. WILL CONTINUE WITH PLAN OF CARE.
--- NOTE | 2017-09-11 10:50 | NUR ---
EYES CLOSED. RESP EVEN AND UNLABORED. BED ALARM ON. CALL LIGHT IN REACH.
--- NOTE | 2017-09-11 12:36 | NUR ---
NUTRITION F/U CHART REVIEWED. PT SLEEPING THRU BREAKFAST AND LUNCH. CLEAR LIQUID DIET SINCE ADMIT. NOW ASSESSED WITH SEVERE MALNUTRITION OF ACUTE ILLNESS R/T DX AEB 1)=/< 50% INTAKE EST ENERGY NEEDS =/> 5 DAYS 2)REDUCED FUEL CONVERSION TECHNICIAN STRENGTH PROCALAMINE TO START AT 40 CC/HR. RECOMMEND ADVANCING DIET WHEN MEDICALLY FEASIBLE. RD FOLLOWING
--- NOTE | 2017-09-11 12:50 | NUR ---
PROCALAMINE INITIATED WITH NEW IV TUBING PER HOSPITAL POLICY. CALL LIGHT IN REACH.
--- NOTE | 2017-09-11 14:55 | NUR ---
MS ADAL HELD D/T SEDATION. ALSO COMPLETED NEURO CHECK. PATIENT IS ALERT TO NAME AND PLACE ONLY, CONFUSED TO TIME AND SITUATION.
--- NOTE | 2017-09-11 14:55 | NUR ---
ANDRA GALEAS HELD D/T SEDATION.
--- NOTE | 2017-09-11 15:00 | NUR ---
MS GALEAS HELD D/T SEDATION.
--- NOTE | 2017-09-11 16:56 | NUR ---
BLOOD CULTURES X2, ONE FROM RIGHT ARM AND ONE FROM LEFT INFUSAPORT.
--- NOTE | 2017-09-11 18:37 | NUR ---
LYING IN BED,WITHOUT DISTRESS.
--- NOTE | 2017-09-11 19:35 | NUR ---
RECIEVED SHIFT REPORT. PT IS LYING IN BED. PT IS LETHARGIC AND CONFUSED AT THIS TIME. O2 @ 2 PER NASAL CANNULA. SCD'S ON. NO SIGNS OF PAIN OR DISTRESS AT THIS TIME. IV IS PATENT AND FLUIDS ARE RUNNING PER ORDER. WILL CONTINUE TO MONITOR. SIDE RAILS ARE UP X 2. BED IS IN LOWEST POSITION. BED ALARM IS ON FOR SAFETY. CALL LIGHT IS WITHIN REACH.
--- NOTE | 2017-09-11 20:13 | NUR ---
WENT TO PLACE GAMBOA CATH BUT IS GETTING CT AT THIS TIME. IV TUBING CHANGED WHILE PATIENT WAS GONE. TEMPERING OVEN OPERATOR NURSE STATES SHE WILL PLACE GAMBOA AND GET URINE SAMPLE FOR MULITPLE TESTS ORDERED PER CIRCUIT BREAKER SUPERVISOR WELL.
--- NOTE | 2017-09-11 22:50 | NUR ---
16F GAMBOA CATHETER PLACED AT THIS TIME USING STERILE TECHNIQUE. EASILY INSERTED. RECIEVED BACK 250ML DARK TEA COLORED URINE. SIDE RAILS X 2. BED LOW. BED ALARM ON. CALL LIGHT IN REACH.
--- NOTE | 2017-09-11 23:04 | NUR ---
SHIFT ASSESSMENT COMPLETED. CREAMS ADIMINISTERED PER ORDER. PT NOT ABLE TO SWALLOW PILL AT THIS TIME. WILL CONTINUE TO MONITOR. SIDE RAILS X 2. BED LOW. BED ALARM ON. CALL LIGHT IN REACH.
--- NOTE | 2017-09-11 23:10 | NUR ---
URINE SENT TO LAB FOR WARRENTED TESTS.
[2017-09-11 23:37] LABS: CREATININE - URINE 155.7 mg/dL (30-125); POTASSIUM - URINE 36.1 MMOL/L (12.0-62.0); PRO/CRE RATIO URINE 1.1 mg/g; PROTEIN - URINE 166.6 mg/dL (0.0-11.9)
[2017-09-11 23:46] LABS: APPEARANCE CLOUDY (CLEAR); BILIRUBIN NEGATIVE (NEGATIVE); COLOR DK YELLOW (YELLOW); GLUCOSE NEGATIVE (NEGATIVE); KETONE NEGATIVE (NEGATIVE); NITRITE NEGATIVE (NEGATIVE); PROTEIN TRACE mg/dL (NEGATIVE); UROBILINOGEN NORMAL (NORMAL)
[2017-09-11 23:49] LABS: AMORPHOUS SEDIMENT >1+ /lpf (NONE SEEN); BACTERIA FEW /hpf (NONE SEEN); EPITHELIAL CELLS 0-5 /hpf (0-5); GRANULAR CAST 0-5 /lpf (NONE SEEN); RED CELLS - URINE 0-5 /hpf (0-5); WHITE CELLS - URINE 0-5 /hpf (0-5)
[2017-09-12 04:00] VITALS: BP 86/31
[2017-09-12 07:32] LABS: BASOPHILS 0.1 % (0-2); HEMATOCRIT 31.3 % (36.0-48.0); HEMOGLOBIN 9.9 g/dL (12-16); IMMATURE GRANULOCYTES 0.9 % (0-5); LYMPHOCYTES 2.5 % (15-50); MCH 27.3 pg (26.0-34.0); MCHC 31.6 g/dL (31.0-37.0); MCV 86.5 fL (80.0-100.0); MEAN PLATELET VOLUME 8.8 fL (7.4-10.4); MONOCYTES 5.8 % (2-11); NEUTROPHILS 89.7 % (40-80); PLATELET COUNT 271 10x3/uL (130-400); RBC 3.62 10x6/uL (4.00-5.40); RDW 18.5 % (11.5-14.5); WBC 31.4 10x3/uL (4.8-10.8)
[2017-09-12 07:47] LABS: ANION GAP 17.7 mmol/L (8-16); CALCIUM 8.3 mg/dL (8.5-10.1); CARBON DIOXIDE 15.9 mmol/L (21.0-32.0); CREATININE - SERUM 4.1 mg/dL (0.6-1.3); POTASSIUM - SERUM 4.6 mmol/L (3.5-5.1); VANCOMYCIN - RANDOM 28.1 ug/mL (10.0-20.0)
--- NOTE | 2017-09-12 07:54 | NUR ---
AWAKE AND ALERT. RESPONDS TO QUESTIONS. LUNGS ARE CLEAR BILATERALLY, NO COUGH NOTED. SKIN IS INTACT WITHOUT REDNESS EXCEPT TO COCCYX AREA WHICH HAS SOME SCABBED AREAS AND 2 SMALL SUPERFICIAL STAGE 2. WILL MONITOR. LEFT PORT IS PATENT WITHOUT REDNESS AT INSERTION SITE. GAMBOA PATNET WITH CLEAR YELLOW URINE. NO NEEDS NOTED AT THIS TIME.
--- NOTE | 2017-09-12 08:33 | NUR ---
ATTEMPTED TO CONTACT DAUGHTER AND NIECE FOR MRI SCREENING FORM. NO ANSWER AND PATIENT UNABLE TO ANSWER MRI SCREENING FORM. WILL ATTEMPT TO CONTACT FAMILY TODAY SO TO PERFORM MRI, IF POSSIBLE.
[2017-09-12 09:11] VITALS: BP 95/61
--- NOTE | 2017-09-12 10:00 | NUR ---
REPOSITIONED IN BED FOR COMFORT. ABLE TO TAKE SMALL SIPS FROM STRAW WITH STAFF ASSISTANCE. RESPONDS APPROPRIATELY FROM TIME TO TIME TO QUESTIONS. WILL CONTINUE TO MONITOR. DOESN'T EVEN ATTEMPT TO SWALLOW MEDS.
[2017-09-12 11:56] VITALS: BP 81/52
--- NOTE | 2017-09-12 12:00 | NUR ---
REPOSITIONED IN BED AT THIS TIME. NO NEEDS NOTED.
--- NOTE | 2017-09-12 14:00 | NUR ---
CONTINUES TO BE BASICALLY NON RESPONSIVE EXCEPT ON OCCASSION. WILL CONTINUE TO MONITOR.
[2017-09-12 15:23] VITALS: BP 92/59
--- NOTE | 2017-09-12 18:15 | NUR ---
SPOKE WITH DAUGHTER HAYES ON PHONE. DR. ARCHER AWARE AND GIVEN DAUGHTERS' NUMBER TO CALL.
--- NOTE | 2017-09-12 18:24 | NUR ---
UNABLE TO SCREEN PATIENT. WAITING ON WORKING PHONE NUMBER FOR FAMILY OF PATIENT.
--- NOTE | 2017-09-12 18:56 | NUR ---
VISITORS AT BEDSIDE, NEIGHBORS. OFF UNIT VIA BED FOR CT OF ABDOMEN.
--- NOTE | 2017-09-12 19:25 | NUR ---
RECIEVED SHIFT REPORT. PT IS LYING IN BED. PT IS LETHARGIC. PT WITH INCOMPREHENSIBLE SOUNDS. O2 @ 2 PER NASAL CANNULA. GAMBOA WITH 50CC DARK URINE. PT REQUIRES ASSISTANCE TURNING IN BED FOR COMFORT AND SKIN CARE. IV IS PATENT AND FLUIDS ARE RUNNING PER ORDER. NO SIGNS OF DISTRESS OR PAIN AT THIS TIME. DAUGHTER IS AT THE BEDSIDE. SIDE RAILS ARE UP X 2. BED IS IN LOWEST POSITION. BED ALARM IS ON FOR SAFETY. CALL LIGHT IS WITHIN REACH.
[2017-09-12 20:00] VITALS: BP 87/53
--- NOTE | 2017-09-12 20:55 | NUR ---
SHIFT ASSESSMENT COMPLETED. CREAMS APPLIED PER ORDER. PT IS NOT SWALLOWING AT THIS TIME. DAUGHTER AT BEDSIDE. SIDE RAILS X 2. BED LOW. BED ALARM ON. CALL LIGHT IN REACH.
[2017-09-13] VITALS: BP 79/55
[2017-09-13 04:00] VITALS: BP 73/45
[2017-09-13 05:35] LABS: BASOPHILS 0.1 % (0-2); EOSINOPHILS 1.5 % (0-7); HEMATOCRIT 30.2 % (36.0-48.0); HEMOGLOBIN 9.7 g/dL (12-16); IMMATURE GRANULOCYTES 0.9 % (0-5); LYMPHOCYTES 2.7 % (15-50); MCH 27.5 pg (26.0-34.0); MCHC 32.1 g/dL (31.0-37.0); MCV 85.6 fL (80.0-100.0); MEAN PLATELET VOLUME 8.9 fL (7.4-10.4); MONOCYTES 6.4 % (2-11); NEUTROPHILS 88.4 % (40-80); PLATELET COUNT 252 10x3/uL (130-400); RBC 3.53 10x6/uL (4.00-5.40); RDW 18.9 % (11.5-14.5); WBC 27.9 10x3/uL (4.8-10.8)
[2017-09-13 06:03] LABS: ANION GAP 18.4 mmol/L (8-16); CALCIUM 9.1 mg/dL (8.5-10.1); CREATININE - SERUM 4.6 mg/dL (0.6-1.3); POTASSIUM - SERUM 4.4 mmol/L (3.5-5.1); VANCOMYCIN - RANDOM 30.1 ug/mL (10.0-20.0)
--- NOTE | 2017-09-13 07:32 | NUR ---
nursing staff stated that the daughter (Anna Rudolph) number is [phone]
[2017-09-13 07:57] VITALS: BP 92/44
--- NOTE | 2017-09-13 07:58 | NUR ---
RANDOM VANCOMYCIN LEVEL INCREASED FROM YESTERDAY, BUT DONT SEE WHERE ANY DOSES HAVE BEEN ORDERED. ORDERED DAILY RANDOMS WITH AM LABS UNTIL LEVELS ARE BACK UNDER CONTROL
--- NOTE | 2017-09-13 11:46 | NUR ---
Rehab Note- Continue to follow the patient at this time. The patient has had a decline since acute hospital admit, has had increase in WBC, abnormal renal functions, AMS. Will continue to follow on her progress. Jocy Rondon RN Clinical Liaison, [facility] Rehab
[2017-09-13 12:30] VITALS: BP 87/50
--- NOTE | 2017-09-13 14:25 | NUR ---
PT CONFUSED AND LETHARGIC AND NONRESPONSIVE AT THIS TIME IV TO LEFT SUBCLAVIANT PATENT AND INTACT AT THIS TIME SRX2 BED AT LOWEST SETTING CALL LIGHT WITHIN REACH WILL CONTINUE TO MONITOR
--- NOTE | 2017-09-13 15:00 | NUR ---
RT ENTERED ROOM TO ADMINISTER BREATHING TREATMENT. PATIENT SP02 78% ON 6L NC WITH LABORED BREATHING AND USE OF ACCESSORY MUSCLES. RN NOTIFIED. PLACED PATIENT ON NRB MASK FOR SOB AND AIR HUNGER.
[2017-09-13 15:47] VITALS: BP 88/50
--- NOTE | 2017-09-13 19:20 | NUR ---
RECIEVED SHIFT REPORT. PT IS LYING IN BED. PT IS NONVERBAL. PT DOES NOT RESPOND AT THIS TIME. NON REBREATHER AT 15L. SCD'S ON. GAMBOA IS DRAINING URINE BY GRAVITY. PT REQUIRES ASSISTANCE TURNING IN BED FOR COMFORT AND SKIN CARE. PT IS IN NO DISTRESS AT THIS TIME. WILL CONTINUE TO MONITOR. SIDE RAILS ARE UP X 2. BED IS IN LOWEST POSITION. CALL LIGHT IS WITHIN REACH.
[2017-09-13 20:00] VITALS: BP 101/53
--- NOTE | 2017-09-13 23:09 | NUR ---
MONITORS CALLED AND STATED PT HEART RATE WAS IN THE 30'S. WENT IN TO ASSESS PT AND NO HEART BEAT IS HEARD BY EITHER THIS NURSE OR RESPIRATORY THERAPIST.
--- NOTE | 2017-09-13 23:16 | NUR ---
CALL PLACED TO DR ARCHER TO INFORM HER OF CHANGE IN PT CONDITION. TRANSFERED TO ED PHYSICIAN TO HAVE HIM COME AND PRONOUNCE PT.
--- NOTE | 2017-09-13 23:48 | NUR ---
CALL PLACED TO MIRNA AT THIS TIME. PT NOT A CANDIDATE.
--- NOTE | 2017-09-14 00:05 | NUR ---
CALL PLACED TO SHOE [facility]KER.
--- NOTE | 2017-09-14 00:15 | NUR ---
CALL PLACED TO [facility].
--- NOTE | 2017-09-14 01:35 | NUR ---
PT LEFT FLOOR VIA [facility].
== END 2017-09-13 23:30 | DRG 682 ==
LOC: D.ER 11:41 → D.MS 16:56
PROVIDERS: Emergency Medicine; Internal Medicine; ADMIT Internal Medicine Hematology & Oncology
DX: N17.9 Acute kidney failure, unspecified (principal); G93.40 Encephalopathy, unspecified; J18.9 Pneumonia, unspecified organism; J96.90 Respiratory failure, unspecified, unspecified whether with hypoxia or hypercapnia; A41.9 Sepsis, unspecified organism; E43 Unspecified severe protein-calorie malnutrition; C34.90 Malignant neoplasm of unspecified part of unspecified bronchus or lung; E87.2 Acidosis; C79.51 Secondary malignant neoplasm of bone; N39.0 Urinary tract infection, site not specified; Z68.1 Body mass index [BMI] 19.9 or less, adult; K59.00 Constipation, unspecified; E86.0 Dehydration; Z66 Do not resuscitate; M25.572 Pain in left ankle and joints of left foot; L27.1 Localized skin eruption due to drugs and medicaments taken internally; T45.1X5A Adverse effect of antineoplastic and immunosuppressive drugs, initial encounter; C51.9 Malignant neoplasm of vulva, unspecified; K52.9 Noninfective gastroenteritis and colitis, unspecified; Z87.891 Personal history of nicotine dependence; D72.829 Elevated white blood cell count, unspecified; E88.09 Other disorders of plasma-protein metabolism, not elsewhere classified; I95.9 Hypotension, unspecified; D64.9 Anemia, unspecified